=== PATIENT | female | born 1975 | race Asian ===

== ENCOUNTER 2019-07-01 18:24 | Emergency (ER) | payer OTHER ==
[~2019-07-01] VITALS: Ht 157.5 cm; Wt 81.6 kg
[2019-07-01 18:41] VITALS: Ht 157.5 cm; Wt 81.6 kg
[2019-07-01 20:32] VITALS: BP 135/90
== END 2019-07-01 20:32 | disposition home or self-care (01) ==
LOC: ED 18:24
DX: S13.4XXA Sprain of ligaments of cervical spine, initial encounter (principal); S23.3XXA Sprain of ligaments of thoracic spine, initial encounter; S33.5XXA Sprain of ligaments of lumbar spine, initial encounter; V43.52XA Car driver injured in collision with other type car in traffic accident, initial encounter; Y93.I9 Activity, other involving external motion; Y92.411 Interstate highway as the place of occurrence of the external cause; Y99.8 Other external cause status
CPT/HCPCS: 72072